=== PATIENT | male | born 1945 | race Caucasian/White ===

== ENCOUNTER → 2021-06-22 | Outpatient (CLI) | payer MEDICARE ==
[~2021-06-22] MED LIST: ASPIR 8181 MG PO; BUSPIRONE HCL10 MG; CYMBALTA30 MG PO; GABAPENTIN100 MG; OMEPRAZOLE20 MG; PLAVIX75 MG PO; POTASSIUM99 M1; TRAZODONE HCL100 MG
== END ==
LOC: RAD 11:01
PROVIDERS: ATTEND Family Medicine
DX: R60.0 Localized edema (principal); M79.662 Pain in left lower leg; M54.16 Radiculopathy, lumbar region
CPT/HCPCS: 72110; 93971

== ENCOUNTER → 2021-07-05 | Outpatient (CLI) | payer MEDICARE | LOC: CT 15:37 | PROVIDERS: ATTEND Family Medicine | DX: R91.1 Solitary pulmonary nodule (principal) | CPT/HCPCS: 71250 ==

== ENCOUNTER → 2021-10-18 | Outpatient (CLI) | payer MEDICARE | LOC: US 11:35 | PROVIDERS: ATTEND Family Medicine | DX: R10.0 Acute abdomen (principal) | CPT/HCPCS: 76700 ==

== ENCOUNTER → 2022-10-10 | Outpatient (CLI) | payer MEDICARE | LOC: CARD 14:01 | PROVIDERS: ATTEND Family Medicine | DX: R42 Dizziness and giddiness (principal); I25.10 Atherosclerotic heart disease of native coronary artery without angina pectoris; I70.0 Atherosclerosis of aorta | CPT/HCPCS: 70551; 93880 ==

== ENCOUNTER 2023-02-16 18:30 | Inpatient (IN) | payer MEDICARE ==
[~2023-02-16] VITALS: Ht 177.8 cm; Wt 83.6 kg
[2023-02-16] MEDS: Vancomycin IV 1 GM in SODIUM CHLORIDE 0.9% 250ML 250 ML IV SCH ×2 (07:00→19:00)
[~2023-02-16 18:30] MED LIST changes: -BUSPIRONE HCL10 MG; +BUSPIRONE HCL10 MG PO; -OMEPRAZOLE20 MG; +OMEPRAZOLE20 MG PO
[2023-02-16] MEDS ORDERED: Vancomycin IV 1 GM in SODIUM CHLORIDE 0.9% 250ML 250 ML IV ONE (18:45)
[2023-02-16 19:27] LABS: BASOPHILS % 0.3 % (0.0-1.0); EOSINOPHILS % 0.3 % (0.0-6.0); HEMATOCRIT 42.2 % (38.2-49.6); HEMOGLOBIN 13.9 g/dL (14.0-18.0); LYMPHOCYTES # (AUTO) 0.9 (1.0-3.2); LYMPHOCYTES % 6.4 % (18.0-39.1); MEAN CORPUSCULAR HEMOGLOBIN 32.2 pg (28-32); MEAN CORPUSCULAR HGB CONC 32.9 g/dL (31-35); MEAN CORPUSCULAR VOLUME 97.7 fL (81-99); MONOCYTES # (AUTO) 0.8 (0.2-0.8); MONOCYTES % 5.2 % (4.4-11.3); NEUTROPHILS # (AUTO) 12.7 (2.1-6.9); NEUTROPHILS % 86.7 % (38.7-80.0); PLATELET COUNT 275 x10e3/uL (140-360); RED BLOOD COUNT 4.32 x10e6/uL (4.3-5.7); RED CELL DISTRIBUTION WIDTH 12.9 % (11.7-14.4)
[2023-02-16] MEDS ORDERED: ONDANSETRON HCL INJ 2MG/ML 2ML 2 MG/ML VIAL IV PRN ×2 (19:30→20:30)
[2023-02-16] MEDS ORDERED: Morphine 4mg INJECTION 4 MG/ML INJ IV PRN (19:30)
[2023-02-16 19:45] LABS: ALANINE AMINOTRANSFERASE 13 IU/L (0-55); ALBUMIN 2.9 g/dL (3.5-5.0); ALBUMIN/GLOBULIN RATIO 0.8 (0.8-2.0); ALKALINE PHOSPHATASE 61 IU/L (40-150); ANION GAP 16.5 mmol/L (8-16); BLOOD UREA NITROGEN 42 mg/dL (7-26); BUN/CREATININE RATIO 43 (6-25); CALCIUM 9.3 mg/dL (8.4-10.2); CARBON DIOXIDE 19 mmol/L (22-29); CHLORIDE 106 mmol/L (98-107); CREATININE, SERUM 0.97 mg/dL (0.72-1.25); GLUCOSE 139 mg/dL (74-118); POTASSIUM 4.5 mmol/L (3.5-5.1); SODIUM 137 mmol/L (136-145)
[2023-02-16] MEDS ORDERED: SODIUM CHLORIDE 0.9% 1000ML 1,000 ML IV ONE (20:15)
[2023-02-16 22:15] VITALS: BP 122/78
[2023-02-16 22:30] VITALS: BP 122/78
[2023-02-16] MEDS: SODIUM CHLORIDE 0.9% 1000ML 1,000 ML IV SCH (22:51)
[2023-02-16 23:00] VITALS: BP 122/78
[2023-02-17] MEDS ORDERED: ALBUTEROL0.63 MG/3 NEB (00:15)
[2023-02-17] MEDS ORDERED: LIPITOR20 MG PO (00:15)
[2023-02-17] MEDS ORDERED: LYRICA150 MG PO (00:15)
[2023-02-17] MEDS ORDERED: FLOMAX0.4 MG PO (00:15)
[2023-02-17] MEDS ORDERED: CLEOCIN HCL300 MG PO (00:15)
[2023-02-17] MEDS ORDERED: LASIX20 MG PO (00:15)
[2023-02-17] MEDS ORDERED: LOSARTAN POTAS100 MG PO (00:15)
[2023-02-17] MEDS ORDERED: TIZANIDINE HCL4 MG PO (00:15)
[2023-02-17] MEDS ORDERED: METOPROLOL SUCC50 MG PO (00:15)
[2023-02-17] MEDS ORDERED: HYDROCODON-ACE1 EAC9 PO (00:15)
[2023-02-17] MEDS ORDERED: ASMANEX220 MCG (00:15)
[2023-02-17] MEDS ORDERED: FERROUS GLUCON324 M1 PO (00:15)
[2023-02-17] MEDS ORDERED: POTASSIUM CHLO10 ME1 PO (00:15)
[2023-02-17] MEDS ORDERED: FINASTERIDE5 MG PO (00:15)
[2023-02-17] MEDS: Morphine 4mg INJECTION 4 MG/ML INJ IV PRN ×2 (00:21→05:13)
[2023-02-17 04:00] VITALS: BP 120/60
[2023-02-17] MEDS: SODIUM CHLORIDE 0.9% 1000ML 1,000 ML IV SCH ×3 (05:12→21:21)
[2023-02-17] MEDS: Vancomycin IV 1 GM in SODIUM CHLORIDE 0.9% 250ML 250 ML IV SCH ×2 (06:32→20:40)
[2023-02-17 06:57] LABS: BASOPHILS % 0.4 % (0.0-1.0); EOSINOPHILS # (AUTO) 0.1 (0.0-0.4); EOSINOPHILS % 1.3 % (0.0-6.0); HEMATOCRIT 39.1 % (38.2-49.6); HEMOGLOBIN 12.5 g/dL (14.0-18.0); LYMPHOCYTES % 10.2 % (18.0-39.1); MEAN CORPUSCULAR HEMOGLOBIN 31.6 pg (28-32); MONOCYTES # (AUTO) 0.7 (0.2-0.8); MONOCYTES % 7.6 % (4.4-11.3); NEUTROPHILS # (AUTO) 7.6 (2.1-6.9); NEUTROPHILS % 79.7 % (38.7-80.0); PLATELET COUNT 239 x10e3/uL (140-360); RED BLOOD COUNT 3.95 x10e6/uL (4.3-5.7)
[2023-02-17 07:22] LABS: ALBUMIN 2.6 g/dL (3.5-5.0); ALBUMIN/GLOBULIN RATIO 0.9 (0.8-2.0); ANION GAP 11.7 mmol/L (8-16); CALCIUM 8.9 mg/dL (8.4-10.2); CREATININE, SERUM 0.93 mg/dL (0.72-1.25); POTASSIUM 4.7 mmol/L (3.5-5.1)
[2023-02-17] MEDS ORDERED: ALBUTEROL SULF 0.083% NEB SOLN 3 ML NEB NEB PRN (08:15)
[2023-02-17 08:30] VITALS: BP 120/60
[2023-02-17] MEDS: TAMSULOSIN HCL 0.4 MG CAP PO SCH (08:57)
[2023-02-17] MEDS: METOPROLOL SUCCINATE 50 MG TAB XL PO SCH (08:58)
[2023-02-17] MEDS: TIZANIDINE HCL 4 MG TAB PO SCH (08:58)
[2023-02-17] MEDS: FINASTERIDE 5 MG TAB PO SCH (08:58)
[2023-02-17] MEDS: DULOXETINE HCL 30 MG DELAYED RELEASE PO SCH ×2 (08:59→16:49)
[2023-02-17] MEDS: POTASSIUM CHLORIDE 10MEQ EA PO SCH ×2 (08:59→16:49)
[2023-02-17] MEDS: LOSARTAN POTASSIUM 100 MG TAB PO SCH (08:59)
[2023-02-17] MEDS: FUROSEMIDE 20 MG TAB PO SCH ×3 (08:59→21:20)
[2023-02-17] MEDS: CLOPIDOGREL BISULFATE 75 MG TAB PO SCH (09:00)
[2023-02-17] MEDS: BUSPIRONE HCL 10 MG TABLET PO SCH ×2 (09:00→16:49)
[2023-02-17] MEDS: PREGABALIN 75 MG CAP PO SCH ×3 (09:00→21:20)
[2023-02-17] MEDS: FERROUS SULFATE 325 MG TAB PO SCH ×3 (09:00→21:19)
[2023-02-17] MEDS ORDERED: PANTOPRAZOLE SOD 40 MG TABEC PO SCH (09:00)
[2023-02-17 09:17] VITALS: BP 107/58
[2023-02-17] MEDS: HYDROCODONE/APAP 10MG-325MG TAB PO PRN ×2 (12:41→23:28)
[2023-02-17 13:01] VITALS: BP 113/75
[2023-02-17 16:27] VITALS: BP 130/63
[2023-02-17 20:00] VITALS: BP 130/63
[2023-02-17] MEDS: ATORVASTATIN 20 MG TAB PO SCH (21:20)
[2023-02-18] MEDS: SODIUM CHLORIDE 0.9% 1000ML 1,000 ML IV SCH ×3 (04:30→20:39)
[2023-02-18 08:30] VITALS: BP 130/63
[2023-02-18] MEDS: BUSPIRONE HCL 10 MG TABLET PO SCH ×2 (08:40→15:50)
[2023-02-18] MEDS: DULOXETINE HCL 30 MG DELAYED RELEASE PO SCH ×2 (08:41→15:48)
[2023-02-18] MEDS: PANTOPRAZOLE SOD 40 MG TABEC PO SCH (08:41)
[2023-02-18] MEDS: LOSARTAN POTASSIUM 100 MG TAB PO SCH (08:41)
[2023-02-18] MEDS: FINASTERIDE 5 MG TAB PO SCH (08:42)
[2023-02-18] MEDS: FERROUS SULFATE 325 MG TAB PO SCH ×3 (08:42→20:39)
[2023-02-18] MEDS: CLOPIDOGREL BISULFATE 75 MG TAB PO SCH (08:42)
[2023-02-18] MEDS: FUROSEMIDE 20 MG TAB PO SCH ×3 (08:42→20:39)
[2023-02-18] MEDS: TIZANIDINE HCL 4 MG TAB PO SCH (08:42)
[2023-02-18] MEDS: TAMSULOSIN HCL 0.4 MG CAP PO SCH (08:42)
[2023-02-18] MEDS: POTASSIUM CHLORIDE 10MEQ EA PO SCH ×2 (08:42→15:49)
[2023-02-18] MEDS: METOPROLOL SUCCINATE 50 MG TAB XL PO SCH (08:43)
[2023-02-18 08:50] VITALS: BP 109/57
[2023-02-18] MEDS: Vancomycin IV 1 GM in SODIUM CHLORIDE 0.9% 250ML 250 ML IV SCH ×2 (08:52→20:38)
[2023-02-18] MEDS: PREGABALIN 75 MG CAP PO SCH ×3 (09:00→20:38)
[2023-02-18 12:00] VITALS: BP 125/59
[2023-02-18] MEDS: HYDROCODONE/APAP 10MG-325MG TAB PO PRN (13:44)
[2023-02-18 15:56] VITALS: BP 122/70
[2023-02-18 20:00] VITALS: BP 133/67
[2023-02-18] MEDS ORDERED: Vancomycin IV 1 GM VIAL ONE (20:39)
[2023-02-18] MEDS: ATORVASTATIN 20 MG TAB PO SCH (20:39)
[2023-02-19 04:00] VITALS: BP 135/81
[2023-02-19] MEDS: SODIUM CHLORIDE 0.9% 1000ML 1,000 ML IV SCH ×2 (04:55→13:01)
[2023-02-19 08:07] VITALS: BP 135/81
[2023-02-19 09:00] VITALS: BP 136/67
[2023-02-19] MEDS: Vancomycin IV 1 GM in SODIUM CHLORIDE 0.9% 250ML 250 ML IV SCH (10:08)
[2023-02-19] MEDS: PREGABALIN 75 MG CAP PO SCH ×3 (10:09→21:13)
[2023-02-19] MEDS: TIZANIDINE HCL 4 MG TAB PO SCH (10:09)
[2023-02-19] MEDS: CLOPIDOGREL BISULFATE 75 MG TAB PO SCH (10:09)
[2023-02-19] MEDS: DULOXETINE HCL 30 MG DELAYED RELEASE PO SCH ×2 (10:09→17:42)
[2023-02-19] MEDS: BUSPIRONE HCL 10 MG TABLET PO SCH ×2 (10:10→17:42)
[2023-02-19] MEDS: FUROSEMIDE 20 MG TAB PO SCH ×3 (10:10→21:13)
[2023-02-19] MEDS: TAMSULOSIN HCL 0.4 MG CAP PO SCH (10:10)
[2023-02-19] MEDS: LOSARTAN POTASSIUM 100 MG TAB PO SCH (10:10)
[2023-02-19] MEDS: POTASSIUM CHLORIDE 10MEQ EA PO SCH ×2 (10:10→17:42)
[2023-02-19] MEDS: FINASTERIDE 5 MG TAB PO SCH (10:10)
[2023-02-19] MEDS: PANTOPRAZOLE SOD 40 MG TABEC PO SCH (10:10)
[2023-02-19] MEDS: FERROUS SULFATE 325 MG TAB PO SCH ×3 (10:11→21:13)
[2023-02-19] MEDS: METOPROLOL SUCCINATE 50 MG TAB XL PO SCH (10:11)
[2023-02-19] MEDS: HYDROCODONE/APAP 10MG-325MG TAB PO PRN (10:16)
[2023-02-19 12:33] VITALS: BP 114/73
[2023-02-19 16:03] VITALS: BP 105/56
[2023-02-19] MEDS ORDERED: LOPERAMIDE HCL 2 MG CAP PO ONE (17:40)
[2023-02-19 21:00] VITALS: BP 105/56
[2023-02-19] MEDS: ATORVASTATIN 20 MG TAB PO SCH (21:12)
[2023-02-20] MEDS: Vancomycin IV 1 GM in SODIUM CHLORIDE 0.9% 250ML 250 ML IV SCH ×2 (01:41→06:31)
[2023-02-20] MEDS: ENOXAPARIN SOD INJ 40 MG/0.4 ML SYR SC SCH ×2 (01:43→17:25)
[2023-02-20] MEDS: SODIUM CHLORIDE 0.9% 1000ML 1,000 ML IV SCH ×4 (01:44→17:25)
[2023-02-20 07:47] VITALS: BP 124/68
[2023-02-20 07:50] VITALS: BP 124/68
[2023-02-20] MEDS: FINASTERIDE 5 MG TAB PO SCH (08:11)
[2023-02-20] MEDS: DULOXETINE HCL 30 MG DELAYED RELEASE PO SCH ×2 (08:11→17:25)
[2023-02-20] MEDS: PANTOPRAZOLE SOD 40 MG TABEC PO SCH (08:11)
[2023-02-20] MEDS: FERROUS SULFATE 325 MG TAB PO SCH ×3 (08:11→21:37)
[2023-02-20] MEDS: POTASSIUM CHLORIDE 10MEQ EA PO SCH ×2 (08:11→17:24)
[2023-02-20] MEDS: METOPROLOL SUCCINATE 50 MG TAB XL PO SCH (08:12)
[2023-02-20] MEDS: CLOPIDOGREL BISULFATE 75 MG TAB PO SCH (08:13)
[2023-02-20] MEDS: BUSPIRONE HCL 10 MG TABLET PO SCH ×2 (08:13→17:24)
[2023-02-20] MEDS: TIZANIDINE HCL 4 MG TAB PO SCH (08:13)
[2023-02-20] MEDS: TAMSULOSIN HCL 0.4 MG CAP PO SCH (08:13)
[2023-02-20] MEDS: FUROSEMIDE 20 MG TAB PO SCH ×3 (08:13→21:37)
[2023-02-20] MEDS: PREGABALIN 75 MG CAP PO SCH ×3 (08:14→21:37)
[2023-02-20] MEDS: COLLAGENASE 5 GM TUBE TP SCH (08:14)
[2023-02-20] MEDS: LOSARTAN POTASSIUM 100 MG TAB PO SCH (08:14)
[2023-02-20 11:58] VITALS: BP 127/67
[2023-02-20] MEDS: HYDROCODONE/APAP 10MG-325MG TAB PO PRN (12:10)
[2023-02-20 19:43] VITALS: BP 122/72
[2023-02-20 19:48] VITALS: BP 122/72
[2023-02-20] MEDS: ATORVASTATIN 20 MG TAB PO SCH (21:37)
[2023-02-20] MEDS: CEFTRIAXONE 2 GM in SODIUM CHLORIDE 0.9% 100 ML IV SCH (21:38)
[2023-02-21] MEDS: SODIUM CHLORIDE 0.9% 1000ML 1,000 ML IV SCH ×2 (04:03→16:12)
[2023-02-21 06:41] VITALS: BP 117/69
[2023-02-21 07:31] LABS: BASOPHILS # (AUTO) 0.1 (0.0-0.1); BASOPHILS % 1.1 % (0.0-1.0); EOSINOPHILS # (AUTO) 0.3 (0.0-0.4); EOSINOPHILS % 3.7 % (0.0-6.0); HEMOGLOBIN 13.9 g/dL (14.0-18.0); LYMPHOCYTES # (AUTO) 1.4 (1.0-3.2); LYMPHOCYTES % 17.1 % (18.0-39.1); MEAN CORPUSCULAR HGB CONC 32.3 g/dL (31-35); MEAN CORPUSCULAR VOLUME 99.1 fL (81-99); MONOCYTES # (AUTO) 0.5 (0.2-0.8); MONOCYTES % 6.6 % (4.4-11.3); NEUTROPHILS # (AUTO) 5.5 (2.1-6.9); NEUTROPHILS % 68.8 % (38.7-80.0); PLATELET COUNT 238 x10e3/uL (140-360); RED BLOOD COUNT 4.34 x10e6/uL (4.3-5.7); RED CELL DISTRIBUTION WIDTH 12.6 % (11.7-14.4)
[2023-02-21 07:56] LABS: ANION GAP 12.9 mmol/L (8-16); CALCIUM 8.7 mg/dL (8.4-10.2); CREATININE, SERUM 1.01 mg/dL (0.72-1.25); POTASSIUM 3.9 mmol/L (3.5-5.1)
[2023-02-21 08:06] VITALS: BP 138/70
[2023-02-21 08:33] VITALS: BP 138/70
[2023-02-21] MEDS: CEFTRIAXONE 2 GM in SODIUM CHLORIDE 0.9% 100 ML IV SCH (08:37)
[2023-02-21] MEDS: TAMSULOSIN HCL 0.4 MG CAP PO SCH (08:39)
[2023-02-21] MEDS: PANTOPRAZOLE SOD 40 MG TABEC PO SCH (08:39)
[2023-02-21] MEDS: METOPROLOL SUCCINATE 50 MG TAB XL PO SCH (08:39)
[2023-02-21] MEDS: PREGABALIN 75 MG CAP PO SCH ×2 (08:39→16:10)
[2023-02-21] MEDS: DULOXETINE HCL 30 MG DELAYED RELEASE PO SCH ×2 (08:40→16:11)
[2023-02-21] MEDS: LOSARTAN POTASSIUM 100 MG TAB PO SCH (08:40)
[2023-02-21] MEDS: TIZANIDINE HCL 4 MG TAB PO SCH (08:40)
[2023-02-21] MEDS: FINASTERIDE 5 MG TAB PO SCH (08:41)
[2023-02-21] MEDS: FERROUS SULFATE 325 MG TAB PO SCH ×2 (08:41→16:11)
[2023-02-21] MEDS: BUSPIRONE HCL 10 MG TABLET PO SCH ×2 (08:41→16:11)
[2023-02-21] MEDS: CLOPIDOGREL BISULFATE 75 MG TAB PO SCH (08:41)
[2023-02-21] MEDS: POTASSIUM CHLORIDE 10MEQ EA PO SCH ×2 (08:41→16:11)
[2023-02-21] MEDS: FUROSEMIDE 20 MG TAB PO SCH ×2 (08:42→16:11)
[2023-02-21 11:37] VITALS: BP 130/70
[2023-02-21 15:34] VITALS: BP 107/55
[2023-02-21] MEDS: ENOXAPARIN SOD INJ 40 MG/0.4 ML SYR SC SCH (16:11)
[2023-02-21] MEDS: COLLAGENASE 5 GM TUBE TP SCH (16:11)
[2023-02-22] MEDS ORDERED: CEFTRIAXONE 2 GM in SODIUM CHLORIDE 0.9% 100 ML IV SCH (10:00)
== END 2023-02-21 18:12 | disposition home or self-care (01) | DRG 872 ==
LOC: ER 18:36 → ERHOLD 20:26 → MED/SURG2 22:20
PROVIDERS: ADMIT Family Medicine; ATTEND Family Medicine
PROC: 02HV33Z Insertion of Infusion Device into Superior Vena Cava, Percutaneous Approach (ICD-10-PCS; principal; 2023-02-20)
DX: A41.9 Sepsis, unspecified organism (principal); L03.116 Cellulitis of left lower limb; M86.172 Other acute osteomyelitis, left ankle and foot; L97.522 Non-pressure chronic ulcer of other part of left foot with fat layer exposed; R65.20 Severe sepsis without septic shock; Z57.5 Occupational exposure to toxic agents in other industries; I10 Essential (primary) hypertension; I25.2 Old myocardial infarction; I25.10 Atherosclerotic heart disease of native coronary artery without angina pectoris; G62.9 Polyneuropathy, unspecified; I73.9 Peripheral vascular disease, unspecified; F17.210 Nicotine dependence, cigarettes, uncomplicated; A49.1 Streptococcal infection, unspecified site; Z20.822 Contact with and (suspected) exposure to COVID-19; Z95.5 Presence of coronary angioplasty implant and graft
CPT/HCPCS: 0223U; 36415; 36569; 71045; 80048; 80053; 80202; 83605; 85025; 87040; 87071; 87186; 87205; 93925; 94799; 99252; 99284; J0696; J1650; J2270; J2405; J2543; J7030; J7050

== ENCOUNTER 2023-03-27 17:02 | Inpatient (IN) | payer MEDICARE ==
[~2023-03-27] VITALS: Ht 177.8 cm; Wt 86.2 kg
[~2023-03-27 17:02] MED LIST changes: +ALBUTEROL0.63 MG/3 NEB; +ASMANEX220 MCG; +CLEOCIN HCL300 MG PO; +FERROUS GLUCON324 M1 PO; +FINASTERIDE5 MG PO; +FLOMAX0.4 MG PO; +HYDROCODON-ACE1 EAC9 PO; +LASIX20 MG PO; +LIPITOR20 MG PO; +LOSARTAN POTAS100 MG PO; +LYRICA150 MG PO; +METOPROLOL SUCC50 MG PO; +POTASSIUM CHLO10 ME1 PO; +TIZANIDINE HCL4 MG PO
[2023-03-27 17:50] LABS: BASOPHILS % 0.5 % (0.0-1.0); EOSINOPHILS # (AUTO) 0.2 (0.0-0.4); EOSINOPHILS % 2.3 % (0.0-6.0); HEMATOCRIT 38.8 % (38.2-49.6); HEMOGLOBIN 12.6 g/dL (14.0-18.0); LYMPHOCYTES % 12.9 % (18.0-39.1); MEAN CORPUSCULAR HEMOGLOBIN 31.6 pg (28-32); MEAN CORPUSCULAR HGB CONC 32.5 g/dL (31-35); MEAN CORPUSCULAR VOLUME 97.2 fL (81-99); MONOCYTES # (AUTO) 0.5 (0.2-0.8); MONOCYTES % 6.8 % (4.4-11.3); NEUTROPHILS # (AUTO) 5.4 (2.1-6.9); NEUTROPHILS % 73.6 % (38.7-80.0); PLATELET COUNT 194 x10e3/uL (140-360); RED BLOOD COUNT 3.99 x10e6/uL (4.3-5.7); RED CELL DISTRIBUTION WIDTH 13.5 % (11.7-14.4)
[2023-03-27 18:02] LABS: ALBUMIN 2.8 g/dL (3.5-5.0); ALBUMIN/GLOBULIN RATIO 0.8 (0.8-2.0); ANION GAP 11.1 mmol/L (8-16); CALCIUM 9.3 mg/dL (8.4-10.2); CREATININE, SERUM 1.15 mg/dL (0.72-1.25); POTASSIUM 4.1 mmol/L (3.5-5.1)
[2023-03-27] MEDS ORDERED: Vancomycin IV 1 GM in SODIUM CHLORIDE 0.9% 250ML 250 ML IV STA (18:30)
[2023-03-27] MEDS ORDERED: CEFTRIAXONE 1 GM VIAL IV ONE (18:30)
[2023-03-27] MEDS ORDERED: SODIUM CHLORIDE FLUSH 10 ML SYR INJ PRN (18:30)
[2023-03-27] MEDS: SODIUM CHLORIDE 0.9% 1000ML 1,000 ML IV SCH (20:35)
[2023-03-27 23:30] VITALS: BP 120/63; PULSE 80; RESP 18; TEMP 98.4; O2SAT 98
[2023-03-28] VITALS (8 sets, daily range): BP systolic 110–135; BP diastolic 62–74; PULSE 70–91; RESP 18–21; TEMP 97.9–99.5; O2SAT 96–99
[2023-03-28] MEDS: SODIUM CHLORIDE 0.9% 1000ML 1,000 ML IV SCH ×3 (02:30→20:48)
[2023-03-28 05:46] LABS: BASOPHILS # (AUTO) 0.1 (0.0-0.1); BASOPHILS % 0.8 % (0.0-1.0); EOSINOPHILS # (AUTO) 0.3 (0.0-0.4); EOSINOPHILS % 4.5 % (0.0-6.0); HEMATOCRIT 36.7 % (38.2-49.6); HEMOGLOBIN 11.9 g/dL (14.0-18.0); LYMPHOCYTES # (AUTO) 1.4 (1.0-3.2); LYMPHOCYTES % 22.4 % (18.0-39.1); MEAN CORPUSCULAR HEMOGLOBIN 31.7 pg (28-32); MEAN CORPUSCULAR HGB CONC 32.4 g/dL (31-35); MEAN CORPUSCULAR VOLUME 97.9 fL (81-99); MONOCYTES # (AUTO) 0.6 (0.2-0.8); MONOCYTES % 9.5 % (4.4-11.3); NEUTROPHILS # (AUTO) 3.6 (2.1-6.9); NEUTROPHILS % 59.8 % (38.7-80.0); PLATELET COUNT 214 x10e3/uL (140-360); RED BLOOD COUNT 3.75 x10e6/uL (4.3-5.7); RED CELL DISTRIBUTION WIDTH 13.3 % (11.7-14.4)
[2023-03-28 06:09] LABS: ANION GAP 10.2 mmol/L (8-16); CALCIUM 9.1 mg/dL (8.4-10.2); CREATININE, SERUM 0.91 mg/dL (0.72-1.25); POTASSIUM 4.2 mmol/L (3.5-5.1)
[2023-03-28] MEDS ORDERED: HYDROCODONE/APAP 10MG-325MG TAB PO PRN (18:15)
[2023-03-28] MEDS ORDERED: ALBUTEROL SULF 0.083% NEB SOLN 3 ML NEB NEB PRN (18:15)
[2023-03-28] MEDS: ATORVASTATIN 40 MG TAB PO SCH (20:47)
[2023-03-28] MEDS: PREGABALIN 75 MG CAP PO SCH (20:47)
[2023-03-28] MEDS: FUROSEMIDE 20 MG TAB PO SCH (20:47)
[2023-03-29] MEDS: SODIUM CHLORIDE 0.9% 1000ML 1,000 ML IV SCH ×3 (03:21→23:10)
[2023-03-29 04:25] VITALS: BP 133/65; PULSE 82; RESP 18; TEMP 97.9; O2SAT 98
[2023-03-29 08:00] VITALS: BP 125/67; PULSE 75; RESP 18; TEMP 98.6; O2SAT 99
[2023-03-29] MEDS: LOSARTAN POTASSIUM 100 MG TAB PO SCH (09:00)
[2023-03-29] MEDS: METOPROLOL SUCCINATE 50 MG TAB XL PO SCH (09:00)
[2023-03-29] MEDS ORDERED: POTASSIUM CHLORIDE 10MEQ EA PO SCH (09:00)
[2023-03-29] MEDS ORDERED: CLOPIDOGREL BISULFATE 75 MG TAB PO SCH (09:00)
[2023-03-29] MEDS: FUROSEMIDE 20 MG TAB PO SCH (09:23)
[2023-03-29] MEDS: FINASTERIDE 5 MG TAB PO SCH (09:23)
[2023-03-29] MEDS: PREGABALIN 75 MG CAP PO SCH ×3 (09:23→20:17)
[2023-03-29] MEDS ORDERED: CLOPIDOGREL BISULFATE 75 MG TAB PO ONE (09:30)
[2023-03-29 12:38] VITALS: BP 131/67; PULSE 75; RESP 18; TEMP 98.7; O2SAT 97
[2023-03-29] MEDS ORDERED: HEPARIN SOD (PORCINE) 1000 UNIT/ML 30ML ONE (12:57)
[2023-03-29] MEDS ORDERED: LIDOCAINE HCL 2% LOCAL 20 ML VIAL ONE (12:57)
[2023-03-29] MEDS ORDERED: HEPARIN SOD/SOD CHLORIDE 2,000 ML ONE (12:58)
[2023-03-29] MEDS ORDERED: IOPAMIDOL 370 MG/ML 100 ML INFUS..BTL INJ ONE ×2 (12:58→13:16)
[2023-03-29] MEDS ORDERED: NITROGLYCERIN/D5W 200 MCG/ML 250 ML ONE (12:58)
[2023-03-29] MEDS ORDERED: SODIUM CHLORIDE 0.9% 1000ML 1,000 ML ONE (12:58)
[2023-03-29] MEDS ORDERED: FENTANYL CITRATE/PF 100MCG/2 ML INJ ONE (12:59)
[2023-03-29] MEDS ORDERED: MIDAZOLAM HCL 2 MG/2 ML VIAL ONE (12:59)
[2023-03-29] MEDS ORDERED: VERAPAMIL HCL 2.5 MG/ML 2 ML VIAL ONE (13:16)
[2023-03-29] MEDS ORDERED: LIDOCAINE 1% W/EPINEPHRINE 20 ML VIAL ONE (14:04)
[2023-03-29] MEDS ORDERED: SODIUM CHLORIDE 0.9% 1000ML 1,000 ML IV SCH (14:45)
[2023-03-29] MEDS: CEFEPIME 2 GM in SODIUM CHLORIDE 0.9% 100 ML IV SCH (16:06)
[2023-03-29] MEDS: Vancomycin IV 1 GM in SODIUM CHLORIDE 0.9% 250ML 250 ML IV SCH (16:08)
[2023-03-29 16:28] VITALS: BP 128/70; PULSE 75; RESP 18; TEMP 98.2; O2SAT 100
[2023-03-29 18:18] VITALS: BP 128/70; PULSE 75; RESP 18; TEMP 98.2; O2SAT 100
[2023-03-29 20:00] VITALS: BP 149/72; PULSE 88; RESP 18; TEMP 98.3; O2SAT 97
[2023-03-29] MEDS: ATORVASTATIN 40 MG TAB PO SCH (20:17)
[2023-03-30] VITALS (8 sets, daily range): BP systolic 115–134; BP diastolic 62–78; PULSE 68–87; RESP 15–20; TEMP 97.7–98.7; O2SAT 97–99
[2023-03-30] MEDS: Vancomycin IV 1 GM in SODIUM CHLORIDE 0.9% 250ML 250 ML IV SCH ×2 (03:32→17:28)
[2023-03-30] MEDS: CEFEPIME 2 GM in SODIUM CHLORIDE 0.9% 100 ML IV SCH ×2 (03:32→17:28)
[2023-03-30 04:56] LABS: BASOPHILS # (AUTO) 0.1 (0.0-0.1); BASOPHILS % 0.7 % (0.0-1.0); EOSINOPHILS # (AUTO) 0.2 (0.0-0.4); EOSINOPHILS % 2.8 % (0.0-6.0); HEMATOCRIT 37.5 % (38.2-49.6); HEMOGLOBIN 12.4 g/dL (14.0-18.0); LYMPHOCYTES # (AUTO) 1.4 (1.0-3.2); LYMPHOCYTES % 17.4 % (18.0-39.1); MEAN CORPUSCULAR HEMOGLOBIN 31.6 pg (28-32); MEAN CORPUSCULAR HGB CONC 33.1 g/dL (31-35); MEAN CORPUSCULAR VOLUME 95.7 fL (81-99); MONOCYTES # (AUTO) 0.7 (0.2-0.8); NEUTROPHILS # (AUTO) 5.6 (2.1-6.9); NEUTROPHILS % 68.4 % (38.7-80.0); PLATELET COUNT 215 x10e3/uL (140-360); RED BLOOD COUNT 3.92 x10e6/uL (4.3-5.7); RED CELL DISTRIBUTION WIDTH 13.2 % (11.7-14.4)
[2023-03-30 05:23] LABS: ALBUMIN 2.6 g/dL (3.5-5.0); ALBUMIN/GLOBULIN RATIO 0.9 (0.8-2.0); ANION GAP 12.1 mmol/L (8-16); CALCIUM 8.9 mg/dL (8.4-10.2); CHOL/HDL RATIO 3.5 (3.9-4.7); CREATININE, SERUM 0.89 mg/dL (0.72-1.25); POTASSIUM 4.1 mmol/L (3.5-5.1)
[2023-03-30 05:47] LABS: THYROID STIMULATING HORMONE 1.907 uIU/mL (0.350-4.940)
[2023-03-30] MEDS: METOPROLOL SUCCINATE 50 MG TAB XL PO SCH (09:00)
[2023-03-30] MEDS: FUROSEMIDE 20 MG TAB PO SCH (09:00)
[2023-03-30] MEDS: LOSARTAN POTASSIUM 100 MG TAB PO SCH (09:00)
[2023-03-30] MEDS: FINASTERIDE 5 MG TAB PO SCH (09:00)
[2023-03-30] MEDS: POTASSIUM CHLORIDE 10MEQ EA PO SCH (09:00)
[2023-03-30] MEDS: CLOPIDOGREL BISULFATE 75 MG TAB PO SCH (09:00)
[2023-03-30] MEDS: PREGABALIN 75 MG CAP PO SCH ×3 (09:00→21:43)
[2023-03-30] MEDS ORDERED: ACETAMINOPHEN 1000 MG/100 ML 100 ML IV ONE (11:09)
[2023-03-30] MEDS ORDERED: BUPIVACAINE HCL 0.5% INJ 30 ML VIAL INJ ONE (11:37)
[2023-03-30] MEDS ORDERED: ONDANSETRON HCL INJ 2MG/ML 2ML 2 MG/ML VIAL ONE (13:07)
[2023-03-30] MEDS ORDERED: POVIDONE IODINE 0.05% 0.05 % ML PO ONE (13:07)
[2023-03-30] MEDS ORDERED: MIDAZOLAM HCL 2 MG/2 ML VIAL ONE (13:27)
[2023-03-30] MEDS ORDERED: FENTANYL CITRATE/PF 100MCG/2 ML INJ ONE (13:27)
[2023-03-30] MEDS: SODIUM CHLORIDE 0.9% 1000ML 1,000 ML IV SCH (19:00)
[2023-03-30] MEDS: ATORVASTATIN 40 MG TAB PO SCH (21:43)
[2023-03-31] VITALS (9 sets, daily range): BP systolic 127–144; BP diastolic 62–76; PULSE 72–83; RESP 18–24; TEMP 97.3–98.7; O2SAT 97–100
[2023-03-31] MEDS: CEFEPIME 2 GM in SODIUM CHLORIDE 0.9% 100 ML IV SCH ×2 (03:19→14:39)
[2023-03-31] MEDS: Vancomycin IV 1 GM in SODIUM CHLORIDE 0.9% 250ML 250 ML IV SCH ×2 (04:08→16:38)
[2023-03-31] MEDS: METOPROLOL SUCCINATE 50 MG TAB XL PO SCH (08:42)
[2023-03-31] MEDS: FINASTERIDE 5 MG TAB PO SCH (08:42)
[2023-03-31] MEDS: POTASSIUM CHLORIDE 10MEQ EA PO SCH (08:42)
[2023-03-31] MEDS: FUROSEMIDE 20 MG TAB PO SCH (08:43)
[2023-03-31] MEDS: CLOPIDOGREL BISULFATE 75 MG TAB PO SCH (08:43)
[2023-03-31] MEDS: LOSARTAN POTASSIUM 100 MG TAB PO SCH (08:43)
[2023-03-31] MEDS: PREGABALIN 75 MG CAP PO SCH ×3 (08:43→21:31)
[2023-03-31] MEDS: ATORVASTATIN 40 MG TAB PO SCH (08:43)
[2023-03-31] MEDS: SODIUM CHLORIDE 0.9% 1000ML 1,000 ML IV SCH (14:39)
[2023-03-31] MEDS ORDERED: ZOLPIDEM TARTRATE 5 MG TAB PO PRN (18:00)
[2023-04-01] VITALS (9 sets, daily range): BP systolic 111–138; BP diastolic 62–99; PULSE 58–72; RESP 18–22; TEMP 97.8–98.9; O2SAT 98–100
[2023-04-01] MEDS: CEFEPIME 2 GM in SODIUM CHLORIDE 0.9% 100 ML IV SCH ×2 (02:57→15:21)
[2023-04-01] MEDS: Vancomycin IV 1 GM in SODIUM CHLORIDE 0.9% 250ML 250 ML IV SCH ×2 (04:06→16:04)
[2023-04-01] MEDS: SODIUM CHLORIDE 0.9% 1000ML 1,000 ML IV SCH ×2 (04:30→15:21)
[2023-04-01 05:47] LABS: BASOPHILS # (AUTO) 0.1 (0.0-0.1); BASOPHILS % 1.4 % (0.0-1.0); EOSINOPHILS # (AUTO) 0.2 (0.0-0.4); EOSINOPHILS % 3.8 % (0.0-6.0); HEMATOCRIT 38.2 % (38.2-49.6); HEMOGLOBIN 12.7 g/dL (14.0-18.0); LYMPHOCYTES # (AUTO) 1.5 (1.0-3.2); LYMPHOCYTES % 23.1 % (18.0-39.1); MEAN CORPUSCULAR HEMOGLOBIN 31.8 pg (28-32); MEAN CORPUSCULAR HGB CONC 33.2 g/dL (31-35); MEAN CORPUSCULAR VOLUME 95.5 fL (81-99); MONOCYTES # (AUTO) 0.7 (0.2-0.8); MONOCYTES % 10.7 % (4.4-11.3); NEUTROPHILS # (AUTO) 3.7 (2.1-6.9); NEUTROPHILS % 58.2 % (38.7-80.0); PLATELET COUNT 221 x10e3/uL (140-360); RED CELL DISTRIBUTION WIDTH 13.2 % (11.7-14.4)
[2023-04-01 06:04] LABS: CALCIUM 8.7 mg/dL (8.4-10.2); CREATININE, SERUM 1.08 mg/dL (0.72-1.25)
[2023-04-01] MEDS: PREGABALIN 75 MG CAP PO SCH ×3 (08:57→22:03)
[2023-04-01] MEDS: FINASTERIDE 5 MG TAB PO SCH (08:57)
[2023-04-01] MEDS: LOSARTAN POTASSIUM 100 MG TAB PO SCH (08:58)
[2023-04-01] MEDS: FUROSEMIDE 20 MG TAB PO SCH (08:58)
[2023-04-01] MEDS: CLOPIDOGREL BISULFATE 75 MG TAB PO SCH (08:58)
[2023-04-01] MEDS: POTASSIUM CHLORIDE 10MEQ EA PO SCH (08:58)
[2023-04-01] MEDS: METOPROLOL SUCCINATE 50 MG TAB XL PO SCH (08:59)
[2023-04-01] MEDS: ATORVASTATIN 40 MG TAB PO SCH (22:03)
[2023-04-02] VITALS: BP 122/72; PULSE 76; RESP 18; TEMP 97.6; O2SAT 100
[2023-04-02] MEDS: CEFEPIME 2 GM in SODIUM CHLORIDE 0.9% 100 ML IV SCH ×2 (03:39→15:42)
[2023-04-02 04:00] VITALS: BP 123/63; PULSE 70; RESP 18; TEMP 97.6; O2SAT 98
[2023-04-02 04:13] LABS: BASOPHILS # (AUTO) 0.1 (0.0-0.1); EOSINOPHILS # (AUTO) 0.3 (0.0-0.4); EOSINOPHILS % 3.3 % (0.0-6.0); HEMATOCRIT 39.9 % (38.2-49.6); HEMOGLOBIN 13.1 g/dL (14.0-18.0); LYMPHOCYTES # (AUTO) 1.9 (1.0-3.2); LYMPHOCYTES % 23.7 % (18.0-39.1); MEAN CORPUSCULAR HEMOGLOBIN 31.4 pg (28-32); MEAN CORPUSCULAR HGB CONC 32.8 g/dL (31-35); MEAN CORPUSCULAR VOLUME 95.7 fL (81-99); MONOCYTES # (AUTO) 0.8 (0.2-0.8); MONOCYTES % 9.9 % (4.4-11.3); NEUTROPHILS # (AUTO) 4.7 (2.1-6.9); NEUTROPHILS % 59.6 % (38.7-80.0); PLATELET COUNT 217 x10e3/uL (140-360); RED BLOOD COUNT 4.17 x10e6/uL (4.3-5.7); RED CELL DISTRIBUTION WIDTH 13.3 % (11.7-14.4)
[2023-04-02 04:22] LABS: ANION GAP 9.9 mmol/L (8-16); CALCIUM 9.2 mg/dL (8.4-10.2); CREATININE, SERUM 0.93 mg/dL (0.72-1.25); POTASSIUM 3.9 mmol/L (3.5-5.1)
[2023-04-02] MEDS: Vancomycin IV 1 GM in SODIUM CHLORIDE 0.9% 250ML 250 ML IV SCH ×2 (04:59→15:48)
[2023-04-02] MEDS: SODIUM CHLORIDE 0.9% 1000ML 1,000 ML IV SCH (07:50)
[2023-04-02 08:19] VITALS: BP 123/70; PULSE 72; RESP 20; TEMP 97.8; O2SAT 97
[2023-04-02 08:51] VITALS: BP 123/70; PULSE 72; RESP 20; TEMP 97.8; O2SAT 97
[2023-04-02] MEDS: FUROSEMIDE 20 MG TAB PO SCH (09:12)
[2023-04-02] MEDS: POTASSIUM CHLORIDE 10MEQ EA PO SCH (09:12)
[2023-04-02] MEDS: CLOPIDOGREL BISULFATE 75 MG TAB PO SCH (09:12)
[2023-04-02] MEDS: FINASTERIDE 5 MG TAB PO SCH (09:12)
[2023-04-02] MEDS: PREGABALIN 75 MG CAP PO SCH ×2 (09:12→15:42)
[2023-04-02] MEDS: LOSARTAN POTASSIUM 100 MG TAB PO SCH (09:13)
[2023-04-02] MEDS: METOPROLOL SUCCINATE 50 MG TAB XL PO SCH (09:13)
[2023-04-02 12:46] VITALS: BP 112/70; PULSE 67; RESP 18; TEMP 97.7; O2SAT 99
[2023-04-02 16:36] VITALS: BP 115/65; PULSE 78; RESP 19; TEMP 98; O2SAT 100
== END 2023-04-02 18:37 | disposition home or self-care (01) | DRG 253 ==
LOC: ER 17:29 → ERHOLD 18:38 → MED/SURG 23:21
PROVIDERS: ADMIT Family Medicine; ATTEND Family Medicine
PROC: 047S3Z1 Dilation of Left Posterior Tibial Artery using Drug-Coated Balloon, Percutaneous Approach (ICD-10-PCS; 2023-03-29)
PROC: B41D1ZZ Fluoroscopy of Aorta and Bilateral Lower Extremity Arteries using Low Osmolar Contrast (ICD-10-PCS; 2023-03-29)
PROC: 0JBR0ZZ Excision of Left Foot Subcutaneous Tissue and Fascia, Open Approach (ICD-10-PCS; 2023-03-30)
PROC: 0JBR0ZZ Excision of Left Foot Subcutaneous Tissue and Fascia, Open Approach (ICD-10-PCS; principal; 2023-03-30 12:00)
PROC: 02HV33Z Insertion of Infusion Device into Superior Vena Cava, Percutaneous Approach (ICD-10-PCS; 2023-04-01)
DX: I70.262 Atherosclerosis of native arteries of extremities with gangrene, left leg (principal); L02.612 Cutaneous abscess of left foot; M86.8X7 Other osteomyelitis, ankle and foot; L97.423 Non-pressure chronic ulcer of left heel and midfoot with necrosis of muscle; I25.2 Old myocardial infarction; I25.10 Atherosclerotic heart disease of native coronary artery without angina pectoris; Z57.5 Occupational exposure to toxic agents in other industries; G62.2 Polyneuropathy due to other toxic agents; I10 Essential (primary) hypertension; J44.9 Chronic obstructive pulmonary disease, unspecified; Z20.822 Contact with and (suspected) exposure to COVID-19
CPT/HCPCS: 36415; 36569; 37228; 71045; 75630; 80048; 80053; 80061; 80202; 84443; 85025; 87040; 87071; 87075; 87186; 87205; 93005; 93306; 93926; 99152; 99153; 99252; 99284; C1725; C1760; C1769; C1894; J0692; J0696; J1644; J2001; J2250; J2405; J7030; J7050; Q9967

== ENCOUNTER → 2023-04-20 | Outpatient (CLI) | payer MEDICARE | LOC: MRI 12:39 | PROVIDERS: ATTEND Family Medicine | DX: M25.511 Pain in right shoulder (principal) ==

== ENCOUNTER → 2023-05-01 | Outpatient (CLI) | payer MEDICARE | LOC: RAD 14:51 | PROVIDERS: ATTEND Internal Medicine Infectious Disease | DX: Z01.818 Encounter for other preprocedural examination (principal) | CPT/HCPCS: 71046; 93005 ==

== ENCOUNTER → 2023-05-11 | Outpatient (CLI) | payer MEDICARE | LOC: NM 10:30 | PROVIDERS: ATTEND Internal Medicine Infectious Disease | DX: M86.9 Osteomyelitis, unspecified (principal); L97.422 Non-pressure chronic ulcer of left heel and midfoot with fat layer exposed; R60.0 Localized edema | CPT/HCPCS: 78315; A9503 ==

== ENCOUNTER 2023-05-24 08:24 | Outpatient (RCR) | payer MEDICARE ==
[~2023-05-24 08:24] MED LIST changes: +LIDOCAINE/PRILOCAINE 2.5-2.5% KIT ONE
== END 2023-05-25 ==
LOC: WCC 08:24
PROVIDERS: ATTEND Internal Medicine Infectious Disease
DX: L97.422 Non-pressure chronic ulcer of left heel and midfoot with fat layer exposed (principal); R60.0 Localized edema
CPT/HCPCS: 83036; 93923; 99203; 99213 ×5; 99406; G0277 ×2

== ENCOUNTER 2023-09-24 12:44 | Outpatient (RCR) | payer MEDICARE ==
[~2023-09-24] VITALS: Ht 177.8 cm; Wt 90.7 kg
[~2023-09-24 12:44] MED LIST changes: -LIDOCAINE/PRILOCAINE 2.5-2.5% KIT ONE; +LOSARTAN POTASS25 MG PO; +MINERAL OIL/PETROLAT/GLYCERI 6OZ BTL ONE; +TRIAMCINOLONE ACET 0.1% CREAM 15 GM TUBE ONE; +VENTOLIN HFA18 GM INH
== END 2023-09-25 23:10 | disposition home or self-care (01) ==
LOC: WCC 12:44
PROVIDERS: ATTEND Internal Medicine Infectious Disease
DX: L97.422 Non-pressure chronic ulcer of left heel and midfoot with fat layer exposed (principal)

== ENCOUNTER 2023-10-24 12:55 | Outpatient (RCR) | payer MEDICARE ==
[~2023-10-24 12:55] MED LIST changes: -TRIAMCINOLONE ACET 0.1% CREAM 15 GM TUBE ONE
== END 2023-10-25 ==
LOC: WCC 12:55
PROVIDERS: ATTEND Internal Medicine Infectious Disease
DX: L97.422 Non-pressure chronic ulcer of left heel and midfoot with fat layer exposed (principal); R60.0 Localized edema

== ENCOUNTER → 2024-03-25 14:24 | Outpatient (RCR) | payer MEDICARE | END | disposition home or self-care (01) | LOC: WCC 02-27 15:26 | PROVIDERS: ATTEND Plastic Surgery | DX: L97.422 Non-pressure chronic ulcer of left heel and midfoot with fat layer exposed (principal); R60.0 Localized edema ==

== ENCOUNTER 2024-05-23 08:00 | Outpatient (RCR) | payer MEDICARE ==
[~2024-05-23 08:00] MED LIST changes: +IOPAMIDOL 370 MG/ML 100 ML INFUS..BTL INJ ONE
[2024-05-23] MEDS ORDERED: MINERAL OIL/PETROLAT/GLYCERI 6OZ BTL ONE (12:52)
== END 2024-05-23 14:33 | disposition home or self-care (01) ==
LOC: WCC 08:00
PROVIDERS: ATTEND Plastic Surgery
DX: L97.422 Non-pressure chronic ulcer of left heel and midfoot with fat layer exposed (principal); R60.0 Localized edema
CPT/HCPCS: 99213 ×6; Q9967

== ENCOUNTER 2024-06-24 13:02 | Outpatient (RCR) | payer MEDICARE ==
[~2024-06-24 13:02] MED LIST changes: -IOPAMIDOL 370 MG/ML 100 ML INFUS..BTL INJ ONE
== END 2024-06-25 ==
LOC: WCC 13:02
PROVIDERS: ATTEND Plastic Surgery
DX: L97.422 Non-pressure chronic ulcer of left heel and midfoot with fat layer exposed (principal); R60.0 Localized edema

== ENCOUNTER 2024-07-25 11:32 | Outpatient (RCR) | payer MEDICARE ==
[2024-07-25] MEDS ORDERED: MINERAL OIL/PETROLAT/GLYCERI 6OZ BTL ONE (12:38)
== END 2024-07-26 ==
LOC: WCC 11:32
PROVIDERS: ATTEND Plastic Surgery
DX: L97.422 Non-pressure chronic ulcer of left heel and midfoot with fat layer exposed (principal); R60.0 Localized edema

== ENCOUNTER 2024-08-22 11:00 | Outpatient (RCR) | payer MEDICARE ==
[2024-08-22] MEDS ORDERED: MINERAL OIL/PETROLAT/GLYCERI 6OZ BTL ONE (13:41)
== END 2024-08-25 ==
LOC: WCC 11:00
PROVIDERS: ATTEND Plastic Surgery
DX: L97.422 Non-pressure chronic ulcer of left heel and midfoot with fat layer exposed (principal)

== ENCOUNTER → 2024-09-08 | Outpatient (REF) | payer MEDICARE ==
[~2024-09-08] MED LIST changes: -MINERAL OIL/PETROLAT/GLYCERI 6OZ BTL ONE
== END ==
LOC: MRI 12:43
PROVIDERS: ATTEND Podiatrist Foot & Ankle Surgery
DX: M86.572 Other chronic hematogenous osteomyelitis, left ankle and foot (principal)

== ENCOUNTER 2024-09-23 12:57 | Outpatient (RCR) | payer MEDICARE ==
[~2024-09-23 12:57] MED LIST changes: +MINERAL OIL/PETROLAT/GLYCERI 6OZ BTL ONE
== END 2024-09-25 ==
LOC: WCC 12:57
PROVIDERS: ATTEND Plastic Surgery
DX: L97.422 Non-pressure chronic ulcer of left heel and midfoot with fat layer exposed (principal)

== ENCOUNTER → 2024-12-26 | Outpatient (RCR) | payer MEDICARE | LOC: WCC 11-28 12:59 | PROVIDERS: ATTEND Internal Medicine Infectious Disease | DX: L97.422 Non-pressure chronic ulcer of left heel and midfoot with fat layer exposed (principal) ==

== ENCOUNTER → 2025-01-23 | Outpatient (RCR) | payer MEDICARE | LOC: WCC 12-30 15:59 | PROVIDERS: ATTEND Internal Medicine Infectious Disease | DX: L97.422 Non-pressure chronic ulcer of left heel and midfoot with fat layer exposed (principal) ==

== ENCOUNTER 2025-02-20 10:21 | Outpatient (RCR) | payer MEDICARE | END 2025-02-23 | LOC: WCC 10:21 | PROVIDERS: ATTEND Internal Medicine Infectious Disease | DX: L97.422 Non-pressure chronic ulcer of left heel and midfoot with fat layer exposed (principal) ==

== ENCOUNTER 2025-03-24 11:29 | Outpatient (RCR) | payer MEDICARE | END 2025-03-25 | LOC: WCC 11:29 | PROVIDERS: ATTEND Internal Medicine Infectious Disease | DX: L97.422 Non-pressure chronic ulcer of left heel and midfoot with fat layer exposed (principal) ==

== ENCOUNTER 2025-06-19 13:00 | Outpatient (RCR) | payer MEDICARE | END 2025-06-25 | LOC: WCC 13:00 | PROVIDERS: ATTEND Plastic Surgery | DX: L97.422 Non-pressure chronic ulcer of left heel and midfoot with fat layer exposed (principal) ==

== ENCOUNTER 2025-07-24 11:30 | Outpatient (RCR) | payer MEDICARE | END 2025-07-26 | LOC: WCC 11:30 | PROVIDERS: ATTEND Plastic Surgery | DX: L97.422 Non-pressure chronic ulcer of left heel and midfoot with fat layer exposed (principal) ==

== ENCOUNTER → 2025-08-25 | Outpatient (RCR) | payer MEDICARE ==
[~2025-08-25] MED LIST changes: -MINERAL OIL/PETROLAT/GLYCERI 6OZ BTL ONE
== END ==
LOC: WCC 07-28 13:36
PROVIDERS: ATTEND Plastic Surgery
DX: L97.422 Non-pressure chronic ulcer of left heel and midfoot with fat layer exposed (principal)

== ENCOUNTER 2025-09-09 19:29 | Inpatient (IN) | payer MEDICARE ==
[~2025-09-09] VITALS: Ht 177.8 cm; Wt 72.6 kg
[2025-09-09 19:35] VITALS: TEMP 100.8
[2025-09-09 19:59] LABS: BASOPHILS % 0.2 % (0.0-1.0); EOSINOPHILS % 0.1 % (0.0-6.0); LYMPHOCYTES % 1.6 % (18.0-39.1); MONOCYTES % 4.8 % (4.4-11.3); NEUTROPHILS % 92.4 % (38.7-80.0); RED CELL DISTRIBUTION WIDTH 14.7 % (11.7-14.4)
[2025-09-09] MEDS ORDERED: SODIUM CHLORIDE 0.9% 1000ML 2,000 ML ONE (20:00)
[2025-09-09 20:18] LABS: EST GLOMERULAR FILTRATION RATE 63.0 ML/MIN (>=60)
[2025-09-09 20:18] LABS: CORONAVIRUS COVID-19 AG NEGATIVE (NEGATIVE)
[2025-09-09] MEDS: ACETAMINOPHEN 325 MG TAB PO STA (21:19)
[2025-09-09] MEDS: SODIUM CHLORIDE 0.9% 1000ML 2,000 ML IV STA (21:19)
[2025-09-09] MEDS ORDERED: Morphine 4mg INJECTION 4 MG/ML INJ IV PRN (22:15)
[2025-09-09] MEDS ORDERED: ONDANSETRON HCL INJ 2MG/ML 2ML 2 MG/ML VIAL IV PRN (22:15)
[2025-09-09 23:30] VITALS: PULSE 88; RESP 16
[2025-09-09 23:31] VITALS: PULSE 89; RESP 18; O2SAT 95
[2025-09-09 23:35] LABS: LEUKOCYTE ESTERASE ,URINE NEGATIVE (NEGATIVE); PROTEIN,URINE DIPSTICK 1+ (NEGATIVE); URINE UROBILINOGEN 0.2 mg/dL (0.2 - 1); WBC,URINE (MAN) 0-5 /HPF (0-5)
[2025-09-09 23:36] LABS: EPITHELIAL CELLS,URINE FEW /LPF
[2025-09-09 23:43] VITALS: BP 93/50; PULSE 83; RESP 18; TEMP 98.4; O2SAT 92
[2025-09-09] MEDS ORDERED: SODIUM CHLORIDE 0.9% 1000ML 2,000 ML IV SCH (23:50)
[2025-09-10] VITALS (11 sets, daily range): BP systolic 93–115; BP diastolic 50–72; PULSE 75–88; RESP 16–22; TEMP 97.7–100.2; O2SAT 92–98
[2025-09-10] MEDS ORDERED: IOPAMIDOL 370 MG/ML 100 ML INFUS..BTL INJ ONE (01:22)
[2025-09-10] MEDS: SODIUM CHLORIDE 0.9% 1000ML 1,000 ML IV SCH (02:21)
[2025-09-10 05:36] LABS: BASOPHILS % 0.3 % (0.0-1.0); EOSINOPHILS % 0.1 % (0.0-6.0); LYMPHOCYTES % 3.5 % (18.0-39.1); MONOCYTES % 4.3 % (4.4-11.3); NEUTROPHILS % 91.1 % (38.7-80.0); RED CELL DISTRIBUTION WIDTH 14.9 % (11.7-14.4)
[2025-09-10 05:53] LABS: EST GLOMERULAR FILTRATION RATE 88.0 ML/MIN (>=60)
[2025-09-10] MEDS ORDERED: ACETAMINOPHEN 325 MG TAB PO PRN (08:00)
[2025-09-10] MEDS ORDERED: TEMAZEPAM 15 MG CAP PO PRN (08:00)
[2025-09-10] MEDS ORDERED: ONDANSETRON HCL INJ 2MG/ML 2ML 2 MG/ML VIAL IV PRN (08:00)
[2025-09-10] MEDS ORDERED: HYDRALAZINE HCL 20 MG/ML VIAL IV PRN (08:00)
[2025-09-10] MEDS ORDERED: PIPERACILLIN/TAZOBACTAM 3.375 GM VIAL ONE (08:25)
[2025-09-10] MEDS: FINASTERIDE 5 MG TAB PO SCH (08:31)
[2025-09-10] MEDS: CLOPIDOGREL BISULFATE 75 MG TAB PO SCH (08:31)
[2025-09-10] MEDS: PREGABALIN 75 MG CAP PO SCH (08:31)
[2025-09-10] MEDS: ENOXAPARIN SOD INJ 40 MG/0.4 ML SYR SC SCH (17:25)
[2025-09-10] MEDS: METOPROLOL SUCCINATE 50 MG TAB XL PO SCH (21:04)
[2025-09-10] MEDS: ATORVASTATIN 40 MG TAB PO SCH (21:04)
[2025-09-11] VITALS (15 sets, daily range): BP systolic 93–148; BP diastolic 48–86; PULSE 63–81; RESP 12–26; TEMP 98.3–99.6; O2SAT 19–100
[2025-09-11 06:11] LABS: BASOPHILS % 0.6 % (0.0-1.0); EOSINOPHILS % 1.2 % (0.0-6.0); LYMPHOCYTES % 14.0 % (18.0-39.1); MONOCYTES % 8.6 % (4.4-11.3); NEUTROPHILS % 74.7 % (38.7-80.0); RED CELL DISTRIBUTION WIDTH 15.1 % (11.7-14.4)
[2025-09-11 06:35] LABS: EST GLOMERULAR FILTRATION RATE 86.0 ML/MIN (>=60)
[2025-09-11] MEDS: Vancomycin IV 1 GM in SODIUM CHLORIDE 0.9% 250ML 250 ML IV SCH (09:30)
[2025-09-12] VITALS (15 sets, daily range): BP systolic 118–155; BP diastolic 52–74; PULSE 63–80; RESP 15–25; TEMP 98.1–98.4; O2SAT 97–100
[2025-09-12] MEDS ORDERED: SODIUM HYPOCHLORITE 0.25% 480 ML SOLN IR PRN (13:15)
[2025-09-13] VITALS (15 sets, daily range): BP systolic 125–150; BP diastolic 60–104; PULSE 60–80; RESP 15–24; TEMP 98.2–98.4; O2SAT 97–100
[2025-09-14] VITALS (16 sets, daily range): BP systolic 109–145; BP diastolic 54–83; PULSE 67–87; RESP 18–21; TEMP 98.4–98.6; O2SAT 95–100
[2025-09-14 06:36] LABS: BASOPHILS % 0.9 % (0.0-1.0); EOSINOPHILS % 4.4 % (0.0-6.0); LYMPHOCYTES % 21.0 % (18.0-39.1); MONOCYTES % 9.5 % (4.4-11.3); NEUTROPHILS % 61.9 % (38.7-80.0); RED CELL DISTRIBUTION WIDTH 14.2 % (11.7-14.4)
[2025-09-14 06:58] LABS: EST GLOMERULAR FILTRATION RATE 91.0 ML/MIN (>=60)
[2025-09-14] MEDS: HYDROCODONE/APAP 10MG-325MG TAB PO PRN (17:04)
[2025-09-14] MEDS: ALBUTEROL SULF 0.083% NEB SOLN 3 ML NEB INH PRN (19:39)
[2025-09-15] VITALS (15 sets, daily range): BP systolic 107–167; BP diastolic 56–96; PULSE 65–85; RESP 16–23; TEMP 98.2–98.6; O2SAT 98–100
[2025-09-15] MEDS: Vancomycin IV 1 GM in SODIUM CHLORIDE 0.9% 250ML 250 ML IV SCH (08:47)
[2025-09-16] VITALS (7 sets, daily range): BP systolic 13–138; BP diastolic 56–66; PULSE 70–83; RESP 14–22; TEMP 98–98.6; O2SAT 96–100
== END 2025-09-16 10:00 | disposition home or self-care (01) | DRG 871 ==
LOC: ER 19:33 → ERHOLD 22:13 → IMCU 23:32 → ICU 09-10 23:07
PROVIDERS: ADMIT Internal Medicine; ATTEND Internal Medicine
PROC: 0T9B70Z Drainage of Bladder with Drainage Device, Via Natural or Artificial Opening (ICD-10-PCS; principal; 2025-09-09)
DX: A41.9 Sepsis, unspecified organism (principal); L89.313 Pressure ulcer of right buttock, stage 3; M86.672 Other chronic osteomyelitis, left ankle and foot; L03.116 Cellulitis of left lower limb; E78.5 Hyperlipidemia, unspecified; R09.02 Hypoxemia; R35.0 Frequency of micturition; M54.9 Dorsalgia, unspecified; G89.29 Other chronic pain; I25.10 Atherosclerotic heart disease of native coronary artery without angina pectoris; I11.9 Hypertensive heart disease without heart failure; I73.9 Peripheral vascular disease, unspecified; D72.829 Elevated white blood cell count, unspecified; Z77.39 Contact with and (suspected) exposure to other war theater; Z11.52 Encounter for screening for COVID-19; Z79.02 Long term (current) use of antithrombotics/antiplatelets; Z79.891 Long term (current) use of opiate analgesic; Z95.5 Presence of coronary angioplasty implant and graft
CPT/HCPCS: 36415; 51700; 70450; 71045; 71260; 74177; 80048; 80053; 80202; 81001; 82550; 82948; 83605; 83690; 83880; 84484; 85025; 87040; 87086; 93005; 93970; 94640; 94799; 99252; 99284; J1650; J2543; J3373; J7030; J7050; Q9967